=== PATIENT | female | born 1985 | race Caucasian/White ===

== ENCOUNTER 2020-06-30 15:42 | Emergency (ER) | payer MEDICAID, OTHER ==
[~2020-06-30] VITALS: Ht 165.1 cm; Wt 84.1 kg
[~2020-06-30 15:42] MED LIST: PENI500T2 PO
[2020-06-30 15:56] VITALS: BP 135/81
[2020-06-30 16:18] LABS: URINE HCG NEGATIVE (NEG)
[2020-06-30 16:20] LABS: CLARITY,URINE CLEAR (Clear); COLOR,URINE YELLOW (Yellow); GLUCOSE, URINE NEGATIVE (Neg); KETONES,URINE NEGATIVE (Neg); LEUKOCYTE ESTERASE ,URINE SMALL (Neg); NITRITES, URINE NEGATIVE (Neg); OCCULT BLOOD,URINE NEGATIVE (Neg); PH,URINE 6.5 (4.8-8.0); PROTEIN,URINE NEGATIVE (Neg); UROBILINOGEN,URINE 0.2 E.U/dL (0.2-1.0)
[2020-06-30 16:23] LABS: UA COLLECTION TYPE CLN CATCH MIDSTREAM
[2020-06-30 16:24] LABS: BACTERIA,URINE FEW /HPF (Neg); MUCUS STRANDS FEW /LPF (Neg); RBC,URINE 0-2 /HPF (0-2); SQUAMOUS EPITHELIAL CELL,UR FEW /LPF (FEW); WBC,URINE 0-4 /HPF (0-4)
[2020-06-30] MEDS ORDERED: azithromycin 250mg tablet PO ONE (17:00)
[2020-06-30] MEDS ORDERED: penicillin G benzathine 1.2 million unit/2ml syringe IM ONE (17:00)
[2020-06-30] MEDS ORDERED: CefTRIAXone 250MG IM Kit w/LIDOcaine IM ONE (17:00)
[2020-06-30] MEDS ORDERED: metroNIDAZOLE 500mg tablet PO ONE (17:00)
== END 2020-06-30 17:38 | disposition home or self-care (01) ==
LOC: ER 15:43
DX: Z11.3 Encounter for screening for infections with a predominantly sexual mode of transmission (principal); L23.7 Allergic contact dermatitis due to plants, except food; F32.9 Major depressive disorder, single episode, unspecified; Z87.440 Personal history of urinary (tract) infections; Z72.89 Other problems related to lifestyle; Z79.2 Long term (current) use of antibiotics
CPT/HCPCS: 36415; 81001; 81025; 86592; 87088; 87210; 87491; 87591; 96372; 99284; J0561; J0696; Q0112; J3490